=== PATIENT | female | born 1995 | race Caucasian/White ===

== ENCOUNTER 2019-04-28 20:52 | Emergency (ER) | payer OTHER, SELFPAY ==
[2019-04-28 21:05] VITALS: BP 120/74; PULSE 95; RESP 17; TEMP 36.9; O2SAT 100
--- NOTE | 2019-04-28 21:29 | DI.RAD.S_ITS ---
PROCEDURE: XR FOOT LT MIN 3V INDICATIONS: foot injury TECHNIQUE: 3 views of the foot were acquired. COMPARISON: None. FINDINGS: Bones: No fractures or dislocations. No suspicious bony lesions. Soft tissues: No tibiotalar joint effusion. Achilles tendon appears normal. IMPRESSION: No fracture identified. Dictated by: Moiz Haddad M.D. on 04/28/2019 at 22:01 Approved by: Moiz Haddad M.D. on 04/28/2019 at 22:02
[2019-04-28 23:55] VITALS: BP 121/78; PULSE 83; RESP 16; TEMP 36.9; O2SAT 99
--- NOTE | 2019-04-29 00:01 | ED.LOWEXIN ---
HPI - Extremity Injury (Lower) General Chief Complaint: Extremity Injury, Lower Stated Complaint: left foot injury Time Seen by Provider: 04/29/19 00:01 Source: patient Mode of arrival: Wheelchair Limitations: no limitations History of Present Illness HPI Narrative: This is a 23-year-old female comes to the emergency department with complaint of left foot pain. As well as hematoma on the left lower thigh. Patient states that she was working out she had a 45 lb circular weight that she was trying to place back a PEG for storage and it dropped hitting her and then landing on the top of her left foot. Patient states she has significant pain with weight-bearing. She has pain over the top and bottom of the foot. She does have a little bit of an abrasion on the foot as well as a little hematoma and abrasion on her left thigh. Patient states it felt tingling initially she does not have any numbness or tingling at this time. She does not feel like she has any weakness in her foot. She is able to otherwise be the rest of her leg without issue. She states her tetanus is up-to-date as of the last year. She denies any other major medical issues. She does have a young infant but she is not breast feeding. She denies any allergies to medications. Related Data Previous Rx's Medication Instructions Recorded meloxicam [Mobic] 7.5 mg PO BID #10 tab 04/29/19 Allergies Allergy/AdvReac Type Severity Reaction Status Date / Time No Known Drug Allergies Allergy Verified 04/28/19 21:10 Review of Systems Review of Systems ROS Unobtainable: All systems reviewed & are unremarkable except as noted in HPI and below Patient History Social History Smoking Status: Never smoker Smoking Status: Never smoker alcohol intake frequency: holidays/special occasions only Substance Use Type: does not use Exam Narrative Exam Narrative: GENERAL: Alert and oriented x three, obese, well-appearing female in mild distress HEENT: Head normocephalic, atraumatic, EOMI, pupils reactive, face symmetric, moist mucous membranes NECK: Supple, full range of motion EXTREMITIES: Normal range of motion, no clubbing. Patient has a ecchymosis of the left distal thigh that is about 5 cm in size very mild swelling no easily palpable hematoma. There is an abrasion but no laceration or subcutaneous injury noted. Patient's foot has an abrasion over the dorsum. It is about a cm in size. Patient has tenderness over the dorsum of the foot over the metacarpals 2 and 3 but no point tenderness. She has no bony tenderness of the toes, heel, ankle for lower leg, knee or thigh. Cap refills less than 2 seconds. No ecchymosis or other skin changes noted in the foot. Normal sensation throughout. Neurovascularly intact NEUROLOGICAL: Cranial nerves II through XII grossly intact. Moving all extremities SKIN: Warm, dry, no petechiae, no rashes or lesions other than described above. Initial Vital Signs Initial Vital Signs: Vital Signs Temperature 98.5 F 04/28/19 21:05 Pulse Rate 95 H 04/28/19 21:05 Respiratory Rate 17 04/28/19 21:05 Blood Pressure 120/74 04/28/19 21:05 Pulse Oximetry 100 04/28/19 21:05 Course Orders Ordered: Discontinued Medications Ketorolac Tromethamine (Toradol) 30 mg IM NOW ONE Stop: 04/29/19 00:23 Last Admin: 04/29/19 00:26 Dose: 30 mg Documented by: KEYONNA Vital Signs Vital signs: Vital Signs - 8 hr 04/28/19 23:55 Temperature 98.4 F Pulse Rate 83 Respiratory Rate 16 Blood Pressure [Left Wrist] 121/78 Pulse Oximetry 99 MDM - Extremity Injury (Lower) Imaging Data foot xray: Radiologist's Impression: [address] [address] XRay Report Signed Patient: Ceci Silvestre#: [id number] : 1995Acct:[id number] Age/Sex: 23 / FDate of Service: 04/28/19 Loc: ED Accession Number: [id number] Procedure: XR foot LT min 3V Ordering Provider: Leticia Puente D.O. PROCEDURE: XR FOOT LT MIN 3V INDICATIONS: foot injury TECHNIQUE: 3 views of the foot were acquired. COMPARISON: None. FINDINGS: Bones: No fractures or dislocations. No suspicious bony lesions. Soft tissues: No tibiotalar joint effusion. Achilles tendon appears normal. IMPRESSION: No fracture identified. Dictated by: Moiz Haddad M.D. on 04/28/2019 at 22:01 Approved by: Moiz Haddad M.D. on 04/28/2019 at 22:02 [facility] Narrative Medical decision making narrative: No fracture is noted on x-ray. Patient does have tenderness and mechanism that she could have potentially occult fracture that this was discussed. Plan for walking boot and toe-touch weight-bearing as tolerated. Patient is to follow-up with primary care in a week to 10 days if she is not having any improvement for repeat imaging. Patient's tetanus is up-to-date. She has ecchymosis with maybe a very small hematoma although I do not appreciated on her thigh. She has retest a dose of Toradol. Plan for NSAIDs and Tylenol as needed for pain control, rice and ice. Discharge Plan Departure Patient Disposition: Home Clinical Impression: Contusion of foot, left Qualifiers: Encounter type: initial encounter Qualified Code(s): S90.32XA - Contusion of left foot, initial encounter Traumatic ecchymosis of left thigh Qualifiers: Encounter type: initial encounter Qualified Code(s): S70.12XA - Contusion of left thigh, initial encounter Discharge Date/Time: 04/29/19 00:40 Instructions: DI for Contusion Activity Restrictions/Additional Instructions: Follow-up with primary care the next 7-10 days for recheck if your symptoms are not improving, her having worsening pain or unable to weight bear. You may possibly have an occult fracture and would require repeat imaging at the 7-10 day range. You may take Tylenol up to a 1000 mg every 8 hours for pain. Muscle take meloxicam 1 tablet twice daily as needed for pain. Splint Care: Keep splint clean and dry. Elevated affected body part to decrease swelling. OK to use ice pack on the affected body part. Use for 15-20 minutes each time, for 5-6x per day. If you develop worsening pain, numbness, tingling, discoloration of the affected body part, loosen the splint by loosening the FAITH wrap, and either see your doctor for an urgent re-assessment, or return to the Emergency Department. Return to the Emergency Department for any new or worsening symptoms. Prescriptions: New meloxicam [Mobic] 7.5 mg tablet 7.5 mg PO BID Qty: 10 RF: 0 Referrals: Mirella Small [Primary Care Provider] - Stand Alone Forms: Work Release Note
[2019-04-29] MEDS: KETOROLAC 60 MG/2 ML VIAL 30 MG IM (00:26)
== END 2019-04-29 00:40 | disposition home or self-care (01) ==
PROVIDERS: Emergency Provider Emergency Medicine; PCP Nurse Practitioner Family
DX: S90.32XA Contusion of left foot, initial encounter (principal); S70.12XA Contusion of left thigh, initial encounter; W20.8XXA Other cause of strike by thrown, projected or falling object, initial encounter; Y93.B3 Activity, free weights
CPT/HCPCS: 73630; 96372; 99283; J1885